=== PATIENT | male | born 1955 | race Caucasian/White ===

== ENCOUNTER 2023-11-07 10:03 | Outpatient (REF) | payer MEDICARE, MEDICAID, SELFPAY ==
[2023-11-07 15:43] LABS: Estimated Average Glucose 166 mg/dL; Hemoglobin A1c % 7.4 % (<6.0)
[2023-11-07 16:21] LABS: Alanine Aminotransferase 27 U/L (0-40); Albumin Level 4.4 g/dL (3.5-5.0); Alkaline Phosphatase 60 U/L (39-117); Anion Gap 15 (12-20); Aspartate Amino Transferase 23 U/L (5-37); Bilirubin Direct 0.2 mg/dL (0.0-0.5); Bilirubin Total 0.5 mg/dL (0.0-1.0); Blood Urea Nitrogen 13 mg/dL (9-16); Calcium 9.9 mg/dL (8.4-10.2); Carbon Dioxide 25 mmol/L (22-29); Chloride 104 mmol/L (96-108); Cholesterol 204 mg/dL (<200); Estimated Glomerular Filt Rate > 60; Glucose Random 177 mg/dL (60-115); HDL Cholesterol 40 mg/dL (>40); LDL Cholesterol Calculated 128 mg/dL (<100); Potassium 4.3 mmol/L (3.3-5.1); Sodium 140 mmol/L (135-145); Total Protein 7.4 g/dL (6.5-8.0); Triglycerides 181 mg/dL (<150)
== END 2023-11-07 10:04 | disposition home or self-care (01) ==
LOC: HO.CHCLDS 10:03
PROVIDERS: Visit Provider Student in an Organized Health Care Education/Training Program
DX: E11.9 Type 2 diabetes mellitus without complications (principal); I25.118 Atherosclerotic heart disease of native coronary artery with other forms of angina pectoris; Z79.4 Long term (current) use of insulin
CPT/HCPCS: 36415; 80048; 80061; 80076; 83036

== ENCOUNTER 2024-12-05 09:53 | Outpatient (REF) | payer MEDICARE, MEDICAID, SELFPAY ==
--- OUTSIDE RECORDS SUMMARY | 2024-12-05 11:08 | XMS_ITS | Encounter Summary ---
Author Organization [employer] Address [address] [place] [address] Care Team Providers Care Drafter Marine Name Role Phone Sharon Martinez MD Primary Care Provider [phone] Reason for Visit * Reason Onset Date Comments Appointment Request 09/17/2024 Encounter Details Date Type Department Care Team ([facility] Contact Info) Description 09/17/2024 Telephone [facility] [address] [place] [address] Sharon Martinez MD [address] [place] [address] Appointment Request Social History Tobacco Use Types Packs/Day Years Used Date Smoking Tobacco: Former Cigarettes Smokeless Tobacco: Never Alcohol Use Standard Drinks/Week Comments Not Currently 0 (1 standard drink = 0.6 oz pur e alcohol) Alcohol Answer Date Recorded Frequency of Alcohol Consumption Not on file 11/06/2023 Average Number of Drinks Not on file 024 Frequency of Binge Drinking Not on file 10/14 Score 0 11/06/2023 Housing Stability Answer Date Recorded What is your housing situation today? I have amrik deal 11/06/[address] you li ve. Do you have problems with any of the following? None of the above 11/06/2023 Food Insecurity Answer Date Recorded Within the past 12 months, y ou worried that your food would run out before you got money to buy more: Never True 11/06/2023 Within the past 12 months,th e food you bought just didn't last and you didn't have enough money to get more: Never True Transportation Answer Date Recorded In the past 12 months, has l ack of transportation kept you from medical appts, meetings, work or from getting things needed for daily living? No 11/06/2023 Utilities Answer Date Recorded In the past 12 months, has t he electric, gas, oil or water company threatened to shut off services in your home? No 11/06/2023 Internet Access Answer Date Recorded Internet Access Q1 No 11/06/2023 Internet Access Q2 I do not want or need it 10/14 Sex and Gender Information Value Date Recorded Sex Assigned at Male 12/12/2021 10:23 AM EDT Legal Sex Male 10:23 AM EDT Gender Identity Male 11/06/2023 10:05 AM EDT Sexual Orientation Straight 11/06/2023 10 :05 AM EDT documented as of this encounter Miscellaneous Notes * Telephone Encounter - Jimmy Medrano - 09/17/2024 2:18 PM EDT Tc from [facility] (on HIPAA ) requesting to have apt that was canceled due to provider being off on 09/24 rescheduled . Contact [facility] at [phone] ([email or web address]) documented in this encounter Plan of Treatment Upcoming Encounters Date Type Department Care Team (Late st Contact Info) Description 12/25/2024 2:00 PM EST Medication Management [facility] MED & PEDS [address] [place] [address] Rossi Jorgensen, PharmD [address] [place] [address] documented as of this encounter Visit Diagnoses Not on filedocumented in this encounter Care Teams Drafter Marine Relationship Specialty Start Date End Date Sharon Martinez MD [address] [place] [address] PCP - General Family Medicine 11/06/23 documented as of this encounter
--- OUTSIDE RECORDS SUMMARY | 2024-12-05 11:08 | XMS_ITS | Encounter Summary ---
Author Organization [employer] Address [address] [place] [address] Care Team Providers Care Engineering Operator Name Role Phone Sharon Martinez MD Primary Care Provider [phone] Encounter Details Date Type Department Care Team ([facility] st Contact Info) Description 10/09/2024 Orders Only [facility] [address] [place], [place] [phone] Sharon Martinez MD [address] [place] [address] Social History Tobacco Use Types Packs/Day Years [...] Not on file 10/14 Score 0 11/06/2023 Depression Answer Date Recorded Patient Health Questionnaire-9 Score 13 10/03/2024 Patient Health Questionnaire-9 Score 13 10/03/2024 Last PHQ-9: Questionnaire Data Not on file 0 10/03/2024 Housing Stability Answer Date Recorded What is your housing situation today? I have amrik sing 11/06/[address] you li [...] off services in your home? No 11/06/2023 Depression Answer Date Recorded Patient Health Questionnaire-2 Score 4 10/03/2024 Internet Access Answer Date Recorded Internet Access Q1 No 11/06/2023 Internet Access Q2 I do not want or need it 10/14 Sex and Gender Information Value Date Recorded Sex Assigned at Male 12/12/2021 10:23 AM EDT Legal Sex Male 10:23 AM EDT Gender Identity Male 11/06/2023 10:05 AM EDT Sexual Orientation Straight 11/06/2023 10 :05 AM EDT documented as of this encounter Plan of Treatment Upcoming Encounters Date Type Department Care Team (Late st Contact Info) Description 12/25/2024 2:00 PM EST Medication Management [facility] MED & PEDS [address] [place] [address] Rossi Jorgensen PharmD [address] [place] [address] documented as of this encounter Visit Diagnoses Not on filedocumented in this encounter Additional Health Concerns Assessment Noted Time PHQ-9 Depression Total Score: 13 025 3:26 PM EDT documented as of this encounter Care Teams Engineering Operator Relationship Specialty Start Date End Date Sharon Martinez MD [address] [place] [address] PCP - General Family Medicine 11/06/23 documented as of this encounter
--- OUTSIDE RECORDS SUMMARY | 2024-12-05 11:08 | XMS_ITS | Encounter Summary ---
Author Organization [employer] Address [address] [place] [address] Care Team Providers Care Surgical Product Sales Consultant Name Role Phone Sharon Martinez MD Primary Care Provider [phone] Reason for Visit * Reason Onset Date Comments Med Refill 10/24/2024 Encounter Details Date Type Department Care Team ([facility] st Contact Info) Description 10/24/2024 Telephone [facility] MEDICINE [address] [place] [address] Sharon Martinez MD [address] [place], [place] [phone] Med Refill Social History Tobacco Use Types Packs/Day Years [...] encounter Miscellaneous Notes * Telephone Encounter - Sharon Martinez MD - 10/26/2024 9:18 PM EDT sent * Telephone Encounter - Carolee Thompson LPN - 10/24/2024 4:03 PM EDT Please review request as Combivent has been recently sent to pharmacy * Telephone Encounter - Irvin Yu - 10/24/2024 4:00 PM EDT TC from pt requesting medication refill. Medications needing refill: albuterol (ProAir HFA) 108 (90 Base) MCG/ACT inhaler To be sent to: [id number] - [place] - [address] [facility] [address] documented in this encounter Plan of Treatment Upcoming Encounters Date Type Department Care Team (Late st Contact Info) Description 12/25/2024 2:00 PM EST Medication Management [facility] MED & PEDS [address] [place] [address] Rossi Jorgensen PharmD [address] [place] [address] documented as of this encounter Visit Diagnoses Not on filedocumented in this encounter Additional Health Concerns Assessment Noted Time PHQ-9 Depression Total Score: 13 025 3:26 PM EDT documented as of this encounter Care Teams Surgical Product Sales Consultant Relationship Specialty Start Date End Date Sharon Martinez MD [address] [place] [address] PCP - General Family Medicine 11/06/23 documented as of this encounter
--- OUTSIDE RECORDS SUMMARY | 2024-12-05 11:08 | XMS_ITS | Encounter Summary ---
Author Organization [employer] Address [address] [place] [address] Care Team Providers Care Reinforcing Bar Setter Name Role Phone Sharon Martinez MD Primary Care Provider [phone] Reason for Visit * Reason Onset Date Comments Prior Auth Prescription 05/22/2024 Medication Question 05/22/2024 Encounter Details Date Type Department Care Team ([facility] st Contact Info) Description 05/22/2024 Telephone [facility] MEDICINE [address] [place] [address] Sharon Martinez MD [address] [place] [address] Prior Auth Prescription; Medication Question Social History Tobacco Use Types Packs/Day Years [...] encounter Miscellaneous Notes * Telephone Encounter - Nimesh Mack - 05/22/2024 12:18 PM EDT Tc from [facility] reports that they received two scripts for insulin glargine (Lantus) 100 UNIT/ML injection with two separate directions . They need directions clarified and whether this would be inpen form or vile . Also reporting Insurance not covering medication . [place] required . documented in this encounter Plan of Treatment Upcoming Encounters Date Type Department Care Team (Late st Contact Info) Description 12/25/2024 2:00 PM EST Medication Management [facility] MED & PEDS [address] [place] [address] Rossi Jorgensen PharmD [address] [place] [address] documented as of this encounter Visit Diagnoses Not on filedocumented in this encounter Care Teams Reinforcing Bar Setter Relationship Specialty Start Date End Date Sharon Martinez MD [address] [place] [address] PCP - General Family Medicine 11/06/23 documented as of this encounter
--- OUTSIDE RECORDS SUMMARY | 2024-12-05 11:08 | XMS_ITS | Clinical Summary ---
Author Organization [employer] Address [address] [facility] 7[address] [place] [address] Care Team Providers Care Associate Financial Advisor Name Role Phone Sharon Martinez MD Primary Care Provider [phone] Allergies No known active allergies Medications * This document contains information received from the source organization and may not represent a complete record from that organization. albuterol (ProAir HFA) 108 (90 Base) MCG/ACT inhaler Inhale. 05/28/19 14 Active acetaminophen (Tylenol) 325 MG tablet Take 650 mg by mouth. 01/05/20 20 Active aspirin 81 MG EC tablet Take 81 mg by mouth Once per day. 10/22/19 14 Active Eliquis 5 MG tablet Take 5 mg by mouth 2 times daily. Active gabapentin (Neurontin) 100 MG capsule Take 200 mg by mouth Once per day. 01/05/20 20 Active famotidine (Pepcid) 20 MG tablet 05/31/19 22 Active lovastatin (Mevacor) 20 MG tablet TAKE 1 TABLET BY MOUTH EVERY NIGHT WITH THE EVENING MEAL 10/16/19 24 Active oxybutynin XL (Ditropan-XL) 15 MG 24 hr tablet Take 15 mg by mouth Once per day. 02/17/19 22 Active PARoxetine (Paxil) 20 MG tablet Take 20 mg by mouth Once per day. Active memantine (Namenda) 10 MG tablet Take 1 tablet by mouth Once per day. 03/01/19 25 Active Blood Glucose Monitoring Suppl (FreeStyle Lite) w/Device kit 1 kit by Other route 3 times daily. 1 kit 07/03/19 25 026 Active FREESTYLE LITE test stripIndication s:Type 2 diabetes mellitus without complication, with long-term current use of insulin (HCC) 1 each by Other route 2 times daily. 180 each 3 10/04/19 25 026 Active insulin aspart FlexPen (NovoLOG) 100 UNIT/ML penIndications: Type 2 diabetes mellitus without complication, with long-term current use of insulin ([facility]) Inject 8 Units under the skin 3 times daily. 15 mL 1 10/04/19 25 Active lisinopril 20 MG tabletIndicatio ns:Primary hypertension Take 1 tablet (20 mg) by mouth Once per day. 90 tablet 10/04/19 25 Active metoprolol succinate XL (Toprol-XL) 25 MG 24 hr tabletIndicatio ns:Primary hypertension Take 0.5 tablets (12.5 mg) by mouth Once per day. 90 tablet 10/04/19 25 Active amLODIPine (Norvasc) 5 MG tabletIndicatio ns:Primary hypertension Take 1 tablet (5 mg) by mouth Once per day. 90 tablet 10/04/19 25 Active Blood Glucose Monitoring Suppl (Livrada Lite) w/Device kitIndications: Type 2 diabetes mellitus without complication, with long-term current use of insulin ([facility]) Use to test blood sugar 2 times daily 1 kit 10/07/19 25 Active insulin pen needle (BD Pen Needle Gilma 2nd Gen) 32G x 4 mm miscIndications :Type 2 diabetes mellitus without complication, with long-term current use of insulin ([facility]) Use as instructed to inject insulin 4x/day 100 each 3 10/07/19 25 Active ipratropium-alb uterol (Combivent Respimat) 20-100 MCG/ACT inhalerIndicati ons:Chronic obstructive pulmonary disease, unspecified COPD type ([facility]/HCC) ([facility]) Inhale 1 puff in the morning, at noon, in the evening, and at bedtime. 4 g 11 10/27/19 25 026 Active insulin glargine (Lantus SoloStar) 100 UNIT/ML penIndications: Type 2 diabetes mellitus without complication, with long-term current use of insulin ([facility]) Inject 15 Units under the skin at bedtime. 3 mL 1 11/26/19 25 026 Active insulin glargine (Lantus SoloStar) 100 UNIT/ML penIndications: Type 2 diabetes mellitus without complication, with long-term current use of insulin ([facility]) Inject 10 Units under the skin at bedtime. 3 mL 1 10/04/19 25 025 Discontinued(R eorder (will not trigger notification to Pharmacy)) Active Problems Problem Noted Date Diagnosed Date Moderate dementia with mood disturbance ([facility] ) 12/24/2023 Assessment & Plan (10/04/2024 4:41 PM EDT): - Vascular dementia - following with [facility] Neurology: Dr. Cochran - Encouraged to contact Neuro to schedule follow up appt - During visit, pt also expressed feeling down/depressed at times due to his diagnosis. No acute safety concerns or thoughts of self harm. Referral for [facility] BE placed. Mild intermittent asthma without complication Type 2 diabetes mellitus wit hout complication, with long-term current use of insulin 11/06/2023 Assessment & Plan (10/04/2024 4:37 PM EDT): - Per chart review, question of Type 1 vs Type 2 diabetes. - If Type 2 diabetes --> given age and comorbidities, may benefit from consideration of oral anti-diabetic agents and reduction of insulin. - If Type 1 diabetes --> may benefit from CGM for improved monitoring and notification of episodes of hypo and hyperglycemia - Referral to [facility] CDTM team placed to assist with med management and titration Med management: - Start Lantus 10 units nightly - Decrease to Novolog 8 units AC - BG monitoring supplies sent to pharmacy, reviewed home BG monitoring recommendations - Encouraged lifestyle interventions - Encouraged to discuss further med adjustments with PCP and [facility] Clinical pharmacist Atherosclerosis of coronary artery of [place] heart with stable angina pectoris 05/31/2021 Overview (11/06/2023): Last Assessment & Plan: Pharmacologic stress test 05/12/2021 showed abnormal study with a small in size and mild intensity partially reversible defect at the inferior apex suggesting mixed scar and ischemia of the inferior apex. We will optimize his cardiovascular risk factors. Patient has stable angina and reports rarely having to take nitro for chest pain. We will continue to monitor and follow-up as needed. Dyslipidemia, goal LDL below 70 05/31/2021 Overview (11/06/2023): As of August 2020 his [facility] labs showed an LDL of 164. Patient has been switched from lovastatin to rosuvastatin for better lipid control given the results of his pharmacologic stress test. Hypertension 05/31/2021 Overview (11/06/2023): Last Assessment & Plan: Fairly well-controlled on current antihypertensive medication therapy. Continue without changes. - advised low salt diet - advised activities as tolerable Assessment & Plan (10/04/2024 4:33 PM EDT): - Med refills sent to pharmacy. Cont w. Current regimen, f/up precautions reviewed Encounters * This document contains information received from the source organization and may not represent a complete record from that organization. Date Type Department Care Team Description 11/25/2024 11:00 AM EDT Office Visit [facility] [address] [place] [address] Sharon Martinez MD Type 2 diabetes mellitus without complication, with long-term current use of insulin (HCC) (Primary Dx); Moderate dementia with mood disturbance, unspecified dementia type (CMS/HCC) (HCC); Primary hypertension; Encounter for immunization; Encounter for screening for malignant neoplasm of colon 11/25/2024 Travel 11/24/2024 Telephone [facility] [address] [place] [phone] Sharon Martinez MD Cologuard Outreach Unreturned Kit Reminder 11/19/2024 Patient Outreach [facility] [address] [place] [phone] Sharon Martinez MD Care Coordination (CHW outreach for SDOH PT-1 and food needs-referral completed /) 11/19/2024 Patient Outreach [address] [address] Sharon Martinez MD Pre-visit Planning (SDOH screening positive and Tobacco screening negative) 10/26/2024 Orders Only [facility] [address] [place] [address] Sharon Martinez MD Chronic obstructive pulmonary disease, unspecified COPD type (CMS/HCC) 10/24/2024 Telephone [facility] [address] [place] [phone] Sharon Martinez MD Med Refill 10/09/[address] [address] Arnol Cates brenda 10/09/2024 Orders Only [facility] [address] [place] [address] Sharon Martinez MD 10/06/2024 Telephone [facility] [address] [place], [place] [phone] Sharon Martinez MD med order 10/06/2024 Telephone [facility] [address] [place] [address] Sharon Martinez MD Freestyle Lite Kit 10/03/2024 3:15 PM EDT Office Visit [facility] [address] [place] [address] Leigha Anglin FNP Type 2 diabetes mellitus without complication, with long-term current use of insulin (CMS/HCC) (Primary Dx); Moderate dementia with mood disturbance, unspecified dementia type (CMS/HCC); Primary hypertension; Chronic obstructive pulmonary disease, unspecified COPD type (CMS/HCC) 10/03/2024 Travel 10/02/2024 Telephone [facility] [address] [place] [address] Sharon Martinez MD Chart Prep 09/25/[address] [address] Sharon Martinez MD 09/17/2024 Telephone [facility] [address] [place] [address] Sharon Martinez MD Appointment Request 09/11/2024 Telephone [facility] [address] [place] [address] Sharon Martinez MD TC canceled appt from Last 3 Months Immunizations Immunization Administration Dates Next Due Influenza High-dose Quadriva lent Preservative Free 01/31/2022 Influenza Injectable Quadriv alant Preservative Free IIV4 MDCK 11/22/2017 Influenza Quadrivalent Adjuvanted 11/26/2020,10/2019 Influenza injectable quadriv alent preservative free 10/20/2015 Influenza, High Dose Seasona l, Preservative Free 11/25/2024,11/06/2023,12/19/2018 Pneumococcal Conjugate PCV 20 12/24/2023 Tdap 11/06/2023 Social History Tobacco Use Types Packs/Day Years Used Date Smoking Tobacco: Former Cigarettes Smokeless Tobacco: Never Tobacco Cessation:Counseling Given: Not Answered Alcohol Use Standard Drinks/Week Comments Not Currently [...] housing situation today? I have amrik deal 11/19/[address] you li ve. Do you have problems with any of the following? None of the above 11/19/2024 Food Insecurity Answer Date Recorded Within the past 12 months, y ou worried that your food would run out before you got money to buy more: Never True 11/19/2024 Within the past 12 months,th e food you bought just didn't last and you didn't have enough money to get more: Never True 09/2024 Transportation Answer Date Recorded In the past 12 months, has l ack of transportation kept you from medical appts, meetings, work or from getting things needed for daily living? No 11/25/2024 Utilities Answer Date Recorded In the past 12 months, has t he electric, gas, oil or water company threatened to shut off services in your home? No 11/19/2024 Depression Answer Date Recorded Patient Health Questionnaire-2 Score 4 10/03/2024 Internet Access Answer Date Recorded Internet Access Q1 No 11/25/2024 Internet Access Q2 I do not want or need it 11/12 Sex and Gender Information Value Date Recorded Sex Assigned at Male 12/12/2021 10:23 AM EDT Legal Sex Male 10:23 AM EDT Gender Identity Male 11/06/2023 10:05 AM EDT Sexual Orientation Straight 11/06/2023 10 :05 AM EDT Last Filed Vital Signs Vital Sign Reading Time Taken Comments Blood Pressure 148/66 11/25/2024 11:04 AM EDT Pulse 72 11/25/2024 11:04 AM EDT Temperature 36.3 C (97.3 F) 11/25/2024 11:04 AM EDT Respiratory Rate 18 11/25/2024 11:04 AM EDT Oxygen Saturation 97% 05/01/2024 4:09 PM EDT Inhaled Oxygen Concentration - - Weight 85.3 kg (188 lb) 11/25/2024 11:04 AM EDT Height 170.2 cm (5' 7 ) 11/25/2024 11:04 AM EDT Body Mass Index 29.44 11/25/2024 11:04 AM EDT Plan of Treatment Upcoming Encounters Date Type Department Care Team (Late st Contact Info) Description 12/25/2024 2:00 PM EST Medication Management [facility] [address] [place] [address] Rossi Jorgensen, PharmD [address] [place] [address] Health Maintenance Due Date Last Done Comments CT Colonography 1953 Colonoscopy 1953 Colorectal Cancer Screening 1953 FIT DNA/Cologuard 1953 FIT 1953 FOBT 1953 Sigmoidoscopy 1953 Eye Exam 06/30/1963 Alcohol/Substance Use Screening 1965 Hepatitis C Screening 06/30/1971 Diabetes: Urine Protein Screening 1972 Zoster Vaccines (1 of 2) 06/30/2003 RSV Patients and Patients Aged 60 years or older (1 - Risk 60-74 years 1-dose series) 2013 COVID-19 Vaccine ( season) 2024 12/24/2020, 05/20/2020, 04/29/2020, Additional history exists Lipid Panel 11/06/2024 11/07/2023 Diabetes: Hemoglobin A1C 01/03/2025 025, 03/26/2024, 11/07/2023, Additional history exists Diabetes: Foot Exam 03/26/2025 03/26/2024, 03/26/2024, 03/26/2024, Additional history exists Depression Monitoring 04/05/2025 10/03/2024, 025 SDOH Screening 11/25/2025 11/25/2024 Tobacco Screening 11/25/2025 11/25/2024 DTaP/Tdap/Td Vaccines (2 - Td or Tdap) 11/05/2033 11/06/2023 Pneumococcal Vaccine: 50+ Years Completed 12/24/2023 Influenza Vaccine Completed 11/25/2024, , 01/31/2022, Additional history exists HIB Vaccines Aged Out No longer eligi ble based on patient's age to complete this topic HPV Vaccines Aged Out No longer eligi ble based on patient's age to complete this topic Hepatitis A Vaccines Aged Out No long er eligible based on patient's age to complete this topic Hepatitis B Vaccines Aged Out No long er eligible based on patient's age to complete this topic IPV Vaccines Aged Out No longer eligi ble based on patient's age to complete this topic Meningococcal B Vaccine Aged Out No l onger eligible based on patient's age to complete this topic Meningococcal Vaccine Aged Out No marysol taay eligible based on patient's age to complete this topic RSV under 20 months Aged Out No longe r eligible based on patient's age to complete this topic Rotavirus Vaccines Aged Out No longer eligible based on patient's age to complete this topic Procedures Procedure Name Priority Date/Time Associated Diagnosis Comments POCT GLUCOSE Routine 11/25/2024 11:07 AM EDT Type 2 diabetes mellitus without complication, with long-term current use of insulin ([facility]) POCT GLYCATED HEMOGLOBIN, TOTAL Routine 10/03/2024 3:34 PM EDT Type 2 diabetes mellitus without complication, with long-term current use of insulin ([facility]) POCT GLUCOSE Routine 10/03/2024 3:31 PM EDT Type 2 diabetes mellitus without complication, with long-term current use of insulin ([facility]) LIPID PANEL, STANDARD Routine 11/07/2023 10:13 AM EDT Atherosclerosis of coronary artery of [place] heart with stable angina pectoris, unspecified vessel or lesion type ([facility]) Type 2 diabetes mellitus without complication, with long-term current use of insulin ([facility]) from Last 3 Months or Most Recently Relevant to Health Maintenance Results * POCT Glucose (11/25/2024 11:07 AM EDT) Only the most recent of2 resultswithin the time period is included. Glucose Blood, POC 197 60 - 200 mg/dL QC Media Lot # [id number] Lot# Expiration Date Blood Capillary blood specimen / Unknown 11/25/2024 11:07 AM EDT Sharon Martinez MD POINT OF CARE TEST ENTER/EDIT OR DERABLES Final Result * (ABNORMAL) POCT HGB A1C (10/03/2024 3:34 PM EDT) Hemoglobin A1C 8.7(A) 4.0 - 5.7 % QC Media Lot # [id number] Lot# Expiration Date Blood 10/03/2024 3:34 PM EDT Leigha TEJEDA POINT OF CARE TEST ENTER/EDIT ORDERABLES Final Result * (ABNORMAL) Lipid Panel, Standard (11/07/2023 10:13 AM EDT) Triglycerides 181(H) <150 mg/dL [facility] Comment:Desirable Triglyceri de: less than 150 mg/dLBorderline High Triglyceride 150-199 mg/dLHigh Triglyceride: 200-499 mg/dLVery High Triglyceride: greater than or equal to 5OO mg/dL Cholesterol 204(H) <200 mg/dL [facility] Comment:Desirable Cholestero l: less than 200 mg/dLBorderline High Cholesterol: 200-239 mg/dLHigh Cholesterol: greater than 239 mg/dL LDL Cholesterol Calculated 128(H) <100 mg/dL [facility] Comment:Desirable LDL: less than 100 mg/dLNear Optimal/Above Optimal LDL: 110- 129 mg/dLBorderline High LDL: 130-159 mg/dLHigh LDL: 160-189 mg/dLVery High LDL: greater than or equal to 190 mg/dL HDL Cholesterol 40(L) >40 mg/dL [facility] Comment:Desirable HDL: great er than 40 mg/dL Note: This HDL assay may give artificially low results in patients with liver disease. Blood Venous blood specimen / Unknown 11/07/2023 10:13 AM EDT 11/07/2023 3:03 PM EDT us Sharon Martinez MD LAB BLOOD ORDERABLES Final Resul t [facility] [address] [place] [address] [phone] from Last 3 Months or Most Recently Relevant to Health Maintenance [place] [address] [place] [address] [place] [phone] Care Teams Associate Financial Advisor Relationship Specialty Start Date End Date Sharon Martinez MD [address] [place] [place] [phone] PCP - General Family Medicine 11/06/23
--- OUTSIDE RECORDS SUMMARY | 2024-12-05 11:08 | XMS_ITS | Clinical Summary ---
Author Organization [facility] Address [address] [address] Phone Care Team Providers Care Polymerization Oven Tender Name Role Phone Milena Treviño Primary Care Provider [phone] Allergies No known active allergies Medications ELIQUIS 5 mg tablet Take 5 mg by mouth 2 (two) times a day. 02/01/2021 Active amLODIPine (NORVASC) 5 MG tablet Take 5 mg by mouth 2 (two) times a day. 04/26/2021 Active gabapentin (NEURONTIN) 100 MG capsule Take 200 mg by mouth daily. 01/05/2020 Active aspirin 81 MG EC tablet Take 81 mg by mouth daily. 01/28/2021 Active oxybutynin (DITROPAN XL) 15 MG 24 hr tablet Take 15 mg by mouth daily. 02/17/2021 Active PARoxetine (PAXIL) 20 MG tablet Take 20 mg by mouth daily. 04/18/2021 Active pregabalin (LYRICA) 225 MG capsule Take 225 mg by mouth daily. 04/18/2021 Active insulin aspart U-100 (NOVOLOG FLEXPEN U-100 INSULIN) 100 unit/mL (3 mL) injection pen Inject 10 Units under the skin 3 (three) times a day. Active insulin detemir U-100 (LEVEMIR FLEXTOUCH U-100 INSULN) 100 unit/mL (3 mL) InPn injection pen Inject 20 Units under the skin daily. Active lisinopril (PRINIVIL,ZESTRI L) 20 MG tablet 05/30/2021 Act karlee famotidine (PEPCID) 20 MG tablet 05/30/2021 Active rosuvastatin (CRESTOR) 20 MG tablet Take 1 tablet (20 mg total) by mouth daily. 30 tablet 3 05/31/2021 Active Active Problems Problem Noted Date Diagnosed Date Hypertension 05/31/2021 Assessment & Plan (05/31/2021 3:42 PM EDT): Fairly well-controlled on current antihypertensive medication therapy. Continue without changes. - advised low salt diet - advised activities as tolerable Atherosclerosis of coronary artery of [place] heart with stable angina pectoris 05/31/2021 Assessment & Plan (05/31/2021 3:43 PM EDT): Pharmacologic stress test 05/12/2021 showed abnormal study [...] Dyslipidemia, goal LDL below 70 05/31/2021 Overview (05/31/2021): As of August 2020 his [facility] labs showed an LDL of 164. Patient has been switched from lovastatin to rosuvastatin for better lipid control given the results of his pharmacologic stress test. Social History Tobacco Use Types Packs/Day Years Used Date Smoking Tobacco: Never Smokeless Tobacco: Never Comments:quit at 63, used to smoke since he was 16 Education Answer Date Recorded Are you interested in more education? Not on pj e 06/10/2022 Are you concerned about learning? Not on file 06/10/2022 No 06/10/2022 No 06/10/2022 Digital Access Answer Date Recorded No 07/09/2022 No 07/09/2022 No 07/09/2022 Reliable internet access at home? Not on file 07/09/2022 Device with a working camera? Not on file Sex and Gender Information Value Date Recorded Sex Assigned at Not on file Legal Sex Male 11:33 AM EST Gender Identity Not on file Sexual Orientation Not on file Last Filed Vital Signs Vital Sign Reading Time Taken Comments Blood Pressure 130/70 05/31/2021 2:32 PM EDT Pulse 80 05/31/2021 2:32 PM EDT Temperature - - Respiratory Rate - - Oxygen Saturation 96% 05/31/2021 2:32 PM EDT Inhaled Oxygen Concentration - - Weight 102.1 kg (225 lb) 05/31/2021 2:32 PM EDT Height 172.7 cm (5' 8 ) 05/31/2021 2:32 PM EDT Body Mass Index 34.21 05/31/2021 2:32 PM EDT Plan of Treatment Health Maintenance Due Date Last Done Comments Adult Td,Tdap Booster 1955 BLOOD PRESSURE 1953 CREATININE LEVEL 1953 POTASSIUM LEVEL 1953 DEPRESSION SCREENING 1965 HEPATITIS C SCREENING 06/30/1971 PNEUMOCOCCAL VACCINES (50+ years) (1 of 2 - PCV) 1972 COLOGUARD 1998 COLONOSCOPY 1998 COLORECTAL CANCER SCREENING 1998 FIT TEST 1998 FOBT 1998 SIGMOIDOSCOPY 1998 VIRTUAL COLONOSCOPY 1998 RSV VACCINE (1 - Risk 50-74 years 1-dose series) 06/30/2003 ZOSTER VACCINES (1 of 2) 06/30/2003 INFLUENZA VACCINE (#1) 2024 COVID-19 VACCINE (3 - 2024-2 6 season) 2024 05/20/2020, 04/29/2020 SMOKING STATUS SCREENING (On ce After 26 Yrs) Completed 05/31/2021 HEPATITIS A VACCINES Aged Out No long er eligible based on patient's age to complete this topic HIB VACCINES Aged Out No longer eligi ble based on patient's age to complete this topic MENINGOCOCCAL VACCINES (ACWY) Aged Out No longer eligible based on patient's age to complete this topic MENINGOCOCCAL VACCINES (B) Aged Out N o longer eligible based on patient's age to complete this topic Medical Devices Not on file Insurance MEDICARE PART A & [place] [facility] [place] [facility] [place] [facility] [place] & B [facility] Care Teams Polymerization Oven Tender Relationship Specialty Start Date End Date Milena Treviño PA [address] [place] [address] [phone] PCP - General 01/20/21 Additional Source Comments The information contained in this document represents components of the legal health record. It is not the complete legal health record.[facility]
--- OUTSIDE RECORDS SUMMARY | 2024-12-05 11:08 | XMS_ITS | Encounter Summary ---
Author Organization [employer] Address [address] [place] [address] Care Team Providers Care Hotel Or Motel Room Service Supervisor Name Role Phone Sharon Martinez MD Primary Care Provider [phone] Reason for Visit * Reason Onset Date Comments Medication Question 05/14/2024 Encounter Details Date Type Department Care Team ([facility] st Contact Info) Description 05/14/2024 Telephone [facility] [address] [place] [address] Sharon Martinez MD [address] [place], [place] [id number] Medication Question Social History Tobacco Use Types [...] encounter Miscellaneous Notes * Telephone Encounter - Jada Barrow LPN - 05/19/2024 10:28 AM EDT Please D/c medication below [facility] from [facility] requesting alternative medication due won't be able to order insulin detemir (Levemir FlexPen) 100 UNIT/ML pen. * Telephone Encounter - Kaylen Groves - 05/14/2024 11:44 AM EDT Tc from [facility] requesting alternative medication due won't be able to order insulin detemir (Levemir FlexPen) 100 UNIT/ML pen. documented in this encounter Plan of Treatment Upcoming Encounters Date Type Department Care Team (Late st Contact Info) Description 12/25/2024 2:00 PM EST Medication Management [facility] [address] [place] [address] Rossi Jorgensen PharmD [address] [place] [address] documented as of this encounter Visit Diagnoses Not on filedocumented in this encounter Care Teams Hotel [employer] Motel Room Service Supervisor Relationship Specialty Start Date End Date Sharon Martinez MD [address] [place] [address] PCP - General Family Medicine 11/06/23 documented as of this encounter
--- OUTSIDE RECORDS SUMMARY | 2024-12-05 11:08 | XMS_ITS | Encounter Summary ---
Author Organization [employer] Address [address] 7[address] [place] [address] Care Team Providers Care Coach Mechanic Name Role Phone Sharon Martinez MD Primary Care Provider [phone] Encounter Details Date Type Department Care Team ([facility] st Contact Info) Description 05/28/2024 Orders Only [facility]C MED & PEDS [address] [place] [address] Sharon Martinez MD [address] [place] [address] Social History Tobacco Use Types Packs/Day Years [...] Description 12/25/2024 2:00 PM EST Medication Management [facility] MED & PEDS [address] [place] [address] Rossi Jorgensen, PharmD [address] [place] [address] documented as of this encounter Visit Diagnoses Not on filedocumented in this encounter Care Teams Coach Mechanic Relationship Specialty Start Date End Date Sharon Martinez MD [address] [place], [place] [id number] PCP - General Family Medicine 11/06/23 documented as of this encounter
--- OUTSIDE RECORDS SUMMARY | 2024-12-05 11:08 | XMS_ITS | Clinical Summary ---
Author Organization [employer] [facility] Address [address] [place] [address] Care Team Providers Care Top Case Assembler Name Role Phone Unavailable Primary Care Provider Unavailabl e Social History Tobacco Use Types Packs/Day Years Used Date Smoking Tobacco: Never Assessed Sex and Gender Information Value Date Recorded Sex Assigned at Not on file Legal Sex Male 4:18 PM EST Gender Identity Not on file Sexual Orientation Not on file Plan of Treatment Health Maintenance Due Date Last Done Comments DTaP,Tdap,and Td Vaccines (1 - Tdap) 1972 Pneumococcal Vaccine: 50+ Ye ars (1 of 1 - PCV) 06/30/2003 Zoster Vaccines (1 of 2) 06/30/2003 Abdominal Aortic Aneurysm (A AA) Screen 01/15/2022 Cholesterol Screening (Lipid Panel) 01/15/2022 Falls Risk Assessment 01/15/2022 Hepatitis C Screening 01/15/2022 Social Influencers of Health Screening 01/15/2022 Depression Screening 02/13/2024 COVID-19 Vaccine (1 - 2023-2 5 season) 2024 Influenza Vaccine (#1) 2024 RSV Immunization Adult Patie nts (1 - 1-dose 75+ series) 2028 Colorectal Cancer Screening: Colonoscopy 09/02/2034 09/02/2024 HIB Vaccines Aged Out No longer eligi [...] on patient's age to complete this topic MMR Vaccines Aged Out No longer eligi ble based on patient's age to complete this topic Meningococcal ACWY Vaccine Aged Out N o longer eligible based on patient's age to complete this topic Meningococcal B Vaccine Aged Out No l onger eligible based on patient's age to complete this topic RSV Immunization Patients Un hai 20 months Aged Out No longer eligible b ased on patient's age to complete this topic Varicella Vaccines Aged Out No longer eligible based on patient's age to complete this topic Procedures Procedure Name Priority Date/Time Associated Diagnosis Comments EXTERNAL COLONOSCOPY REPORT Routine 09/02/2024 9:45 AM EDT from Last 3 Months or Most Recently Relevant to Health Maintenance Results * External Colonoscopy Report (09/02/2024 9:45 AM EDT) Anatomical Region Laterality Modality Endoscopy us Historical Provider GI~PROCEDURE ORDERABLES F inal Result from Last 3 Months or Most Recently Relevant to Health Maintenance
--- OUTSIDE RECORDS SUMMARY | 2024-12-05 11:09 | XMS_ITS | Encounter Summary ---
Author Organization [employer] Address [address] 7t [place] [address] Care Team Providers Care Netting Weaver Name Role Phone Sharon Martinez MD Primary Care Provider [phone] Reason for Visit * Reason Onset Date Comments Freestyle Lite Kit 10/06/2024 Encounter Details Date Type Department Care Team ([facility] Contact Info) Description 10/06/2024 Telephone C [facility] MED & PEDS [address] [place] [address] Sharon Martinez MD 505 [place] [address] Freestyle Lite Kit Social History Tobacco Use Types Packs/Day Years [...] encounter Miscellaneous Notes * Telephone Encounter - Harleen Zeng - 10/06/2024 9:59 AM EDT Tc from [place] at [facility] requesting Freestyle Lite Kit. [place] stated Lolita kit is unavailable. documented in this encounter Plan of Treatment Upcoming Encounters Date Type Department Care Team (Late st Contact Info) Description 12/25/2024 2:00 PM EST Medication Management [facility] MED & PEDS [address] [place] [address] Rossi Jorgensen, PharmD [address] [place] [address] documented as of this encounter Visit Diagnoses Diagnosis Type 2 diabetes mellitus without complication, with long-term current use of insulin (HCC) documented in this encounter Additional Health Concerns Assessment Noted Time PHQ-9 Depression Total Score: 13 025 3:26 PM EDT documented as of this encounter Care Teams Netting Weaver Relationship Specialty Start Date End Date Sharon Martinez MD [address] [place] [id number] PCP - General Family Medicine 11/06/23 documented as of this encounter
[2024-12-05 15:11] LABS: Alanine Aminotransferase 25 U/L (0-40); Albumin Level 4.4 g/dL (3.5-5.0); Alkaline Phosphatase 66 U/L (39-117); Anion Gap 12 (12-20); Aspartate Amino Transferase 31 U/L (5-37); Blood Urea Nitrogen 12 mg/dL (9-16); Calcium 9.5 mg/dL (8.4-10.2); Carbon Dioxide 26 mmol/L (22-29); Chloride 107 mmol/L (96-108); Cholesterol 204 mg/dL (<200); Estimated Glomerular Filt Rate > 60; HDL Cholesterol 33 mg/dL (>40); Potassium 3.6 mmol/L (3.3-5.1); Sodium 141 mmol/L (135-145); Total Protein 7.2 g/dL (6.5-8.0); Triglycerides 171 mg/dL (<150)
== END 2024-12-05 09:54 | disposition home or self-care (01) ==
LOC: HO.CHCLDS 09:53
PROVIDERS: Visit Provider Student in an Organized Health Care Education/Training Program
DX: E11.9 Type 2 diabetes mellitus without complications (principal); Z79.4 Long term (current) use of insulin
CPT/HCPCS: 36415; 80048; 80061; 80076

== ENCOUNTER 2024-12-09 15:27 | Outpatient (AMB) | payer MEDICARE, MEDICAID, SELFPAY ==
--- NOTE | 2024-12-09 15:36 | A.OFFVIS_ITS ---
Intake Visit Reasons: 1 year follow HPI Comments Details: 69 years old right-handed man with vascular dementia. He was complaining of difficulty walking and problem with memory. He said that he was forgetting everything. He was also having difficulty sleeping. No seizure-like activity. [facility] Medical History (Updated 12/09/24 @ 15:48 by Raul Cochran MD) Vascular dementia HTN (hypertension) Review of Systems Narrative Difficulty walking and forgetting. Physical Exam Neuro Other: Mental Status: Alert and oriented to person, place, and time. Normal attention. Normal spontaneous speech, fluency, and comprehension. Cranial Nerves: CN II: Visual sahu full to confrontation, visual acuity intact. CN III, IV, : Pupils equal, round, reactive to light and accommodation. Extraocular movements are normal. CN V: Facial sensation is normal. CN VII: Facial movements symmetrical. CN VIII: Hearing intact to bedside conversation is normal. CN IX, X: Palate elevates symmetrically. CN XI: Shoulder shrug and head turn symmetrical. CN XII: Tongue midline without atrophy or fasciculations. Motor: Bulk and tone normal in all extremities. No significant muscle weakness in arms and legs. No drift. Coordination: Hejmeh-kr-tjle is ok Gait and Station: Slow and cautious with a cane. Extrapyramidal: Full facial expressions and blinking. No rigidity. Movements are appropriate with no tremor or abnormality. Speech: Normal; no dysarthria or tremor. Assessment & Plan Assessment & Plan (1) Vascular dementia: Comment: CT brain WO at [facility] in Nov 2023: Extensive MVD and mild to mod atrophy. Code(s): F01.50 - Vascular dementia, unspecified severity, without behavioral disturbance, psychotic disturbance, mood disturbance, and anxiety Category: Medical Qualifiers: Dementia severity: moderate Dementia behavioral or psychological symptom: with other behavioral disturbance Qualified Code(s): F01.B18 - Vascular dementia, moderate, with other behavioral disturbance Plan Impression: Vascular dementia with depression and associated insomnia. Recommendations: 1. Memantine 10 mg twice a day 2. Mirtazapine 7.5 mg at bedtime 3. He is already taking Paxil for depression. Medications: New memantine (Namenda) 10 mg PO DAILY 180 tabs 1RF mirtazapine 7.5 mg PO BEDTIME 90 tabs 1RF Coding Level of Care Code Est Pt Level 4 (63875) Diagnoses Moderate vascular dementia with other behavioral disturbance F01.B18 Dementia severity: moderate Dementia behavioral or psychological symptom: with other behavioral disturbance
--- OUTSIDE RECORDS SUMMARY | 2024-12-09 19:51 | XMS_ITS | Encounter Summary ---
Author Organization [employer] Address [address] 7t [place] [address] Care Team Providers Care Executive Asst Name Role Phone Sharon Martinez MD Primary Care Provider [phone] Encounter Details Date Type Department Care Team ([facility] st Contact Info) Description 10/09/2024 Orders Only [facility] CHC MED & PEDS [address] [place], [place] [phone] Sharon Martinez MD 505 [place] [address] Social History Tobacco Use Types Packs/Day Years [...] 12/25/2024 2:00 PM EST Medication Management [facility] MED & PEDS [address] [place] [address] Rossi Jorgensen PharmD [address] [place] [address] documented as of this encounter Visit Diagnoses Not on filedocumented in this encounter Additional Health Concerns Assessment Noted Time PHQ-9 Depression Total Score: 13 025 3:26 PM EDT documented as of this encounter Care Teams Executive Asst Relationship Specialty Start Date End Date Sharon Martinez MD [address] [place] [address] PCP - General Family Medicine 11/06/23 documented as of this encounter
--- OUTSIDE RECORDS SUMMARY | 2024-12-09 19:51 | XMS_ITS | Encounter Summary ---
Author Organization [employer] Address [address] [place] [address] Care Team Providers Care Contractor Broomcorn Threshing Name Role Phone Sharon Martinez MD Primary Care Provider [phone] Encounter Details Date Type Department Care Team ([facility] st Contact Info) Description 05/28/2024 Orders Only [facility] CHC MED & PEDS [address] [place] [address] Sharon Martinez MD [address] [place] [address] Social History Tobacco Use Types Packs/Day Years [...] Description 12/25/2024 2:00 PM EST Medication Management [facility] MED & PEDS [address] [place] [address] Rossi Jorgensen, PharmD [address] [place] [address] documented as of this encounter Visit Diagnoses Not on filedocumented in this encounter Care Teams Contractor Broomcorn Threshing Relationship Specialty Start Date End Date Sharon Martinez MD [address] [place], [place] [phone] PCP - General Family Medicine 11/06/23 documented as of this encounter
--- OUTSIDE RECORDS SUMMARY | 2024-12-09 19:51 | XMS_ITS | Clinical Summary ---
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 05/31/2021 Assessment [...] [facility] [place] [facility] [place] [facility] [place] [facility] [facility] [place] [facility] Care Teams Dispatcher Electric Power Relationship Specialty Start Date End Date Milena Treviño PA [address] [place] [address] [id number] PCP - General 01/20/21 Additional Source Comments The information contained in this document represents components of the legal health record. It is not the complete legal health record.[facility]
--- OUTSIDE RECORDS SUMMARY | 2024-12-09 19:51 | XMS_ITS | Clinical Summary ---
Author Organization [employer] [facility] Address [address] [place] [address] Care Team Providers Care Care Director Name Role Phone Unavailable Primary Care Provider [...]
--- OUTSIDE RECORDS SUMMARY | 2024-12-09 19:51 | XMS_ITS | Encounter Summary ---
Author Organization [employer] Address [address] [facility] [address]t [place] [address] Care Team Providers Care Programming Director Name Role Phone Sharon Martinez MD Primary Care Provider [phone] Reason for Visit * Reason Onset Date Comments Med Refill 10/24/2024 Encounter Details Date Type Department Care Team ([facility] st Contact Info) Description 10/24/2024 Telephone [facility] MEDICINE [address] [place] [address] Sharon Martinez MD [address] [place], [place] [phone] Med Refill Social History Tobacco Use Types [...] Base) MCG/ACT inhaler To be sent to: [id number] - [place] - [address] [facility] [address] documented in this encounter Plan of Treatment Upcoming Encounters Date Type Department Care Team (Late st Contact Info) Description 12/25/2024 2:00 PM EST Medication Management [facility] MED & PEDS [address] [place] [address] Rossi Jorgensen PharmD [address] [place] [address] documented as of this encounter Visit Diagnoses Not on filedocumented in this encounter Additional Health Concerns Assessment Noted Time PHQ-9 Depression Total Score: 13 025 3:26 PM EDT documented as of this encounter Care Teams Programming Director Relationship Specialty Start Date End Date Sharon Martinez MD [address] [place] [address] PCP - General Family Medicine 11/06/23 documented as of this encounter
--- OUTSIDE RECORDS SUMMARY | 2024-12-09 19:51 | XMS_ITS | Encounter Summary ---
Author Organization [employer] Address [address] [place] [address] Care Team Providers Care Fisher Pot Name Role Phone Sharon Martinez MD Primary Care Provider [phone] Reason for Visit * Reason Onset Date Comments Prior Auth Prescription 05/22/2024 Medication Question 05/22/2024 Encounter Details Date Type Department Care Team ([facility] st Contact Info) Description 05/22/2024 Telephone [facility] MEDICINE [address] [place] [address] Sharon Martinez MD [address] [place] [address] Prior Auth Prescription; Medication Question Social History [...] - 05/22/2024 12:18 PM EDT Tc from [facility] reports that they received two scripts for [...] Description 12/25/2024 2:00 PM EST Medication Management [facility] MED & PEDS [address] [place] [address] Rossi Jorgensen PharmD [address] [place] [address] documented as of this encounter Visit Diagnoses Not on filedocumented in this encounter Care Teams Fisher Pot Relationship Specialty Start Date End Date Sharon Martinez MD [address] [place] [address] PCP - General Family Medicine 11/06/23 documented as of this encounter
--- OUTSIDE RECORDS SUMMARY | 2024-12-09 19:51 | XMS_ITS | Encounter Summary ---
Author Organization [employer] Address [address] [facility] 7t [place] [address] Care Team Providers Care Broiler Chef Or Cook Name Role Phone Sharon Martinez MD Primary Care Provider [phone] Reason for Visit * Reason Onset Date Comments Freestyle Lite Kit 10/06/2024 Encounter Details Date Type Department Care Team ([facility] Contact Info) Description 10/06/2024 Telephone C [facility] MED & PEDS [address] [place] [address] Sharon Martinez MD [address] [place] [address] Freestyle Lite Kit Social History Tobacco Use [...] 9:59 AM EDT Tc from [place] at [facility] requesting Freestyle Lite Kit. [place] stated [place]ras kit is unavailable. documented in this encounter Plan of Treatment Upcoming Encounters Date Type Department Care Team (Late st Contact Info) Description 12/25/2024 2:00 PM EST Medication Management [facility] MED & PEDS [address] [place] [address] Rossi Jorgensen, PharmD [address] [place] [address] documented as of this encounter Visit Diagnoses Diagnosis Type 2 diabetes mellitus without complication, with long-term current use of insulin (HCC) documented in this encounter Additional Health Concerns Assessment Noted Time PHQ-9 Depression Total Score: 13 025 3:26 PM EDT documented as of this encounter Care Teams Broiler Chef Or Cook Relationship Specialty Start Date End Date Sharon Martinez MD [address] [place] [address] PCP - General Family Medicine 11/06/23 documented as of this encounter
--- OUTSIDE RECORDS SUMMARY | 2024-12-09 19:51 | XMS_ITS | Encounter Summary ---
Author Organization [employer] Address [address] [place] [address] Care Team Providers Care Network Systems Consultant Name Role Phone Sharon Martinez MD Primary Care Provider [phone] Reason for Visit * Reason Onset Date Comments Medication Question 05/14/2024 Encounter Details Date Type Department Care Team ([facility] st Contact Info) Description 05/14/2024 Telephone [facility] MEDICINE [address] [place] [address] Sharon Martinez MD [address] [place], [place] [phone] Medication Question Social History Tobacco Use Types [...] 2:00 PM EST Medication Management [facility] MED & PEDS [address] [place] [address] Rossi Jorgensen PharmD [address] [place] [address] documented as of this encounter Visit Diagnoses Not on filedocumented in this encounter Care Teams Network Systems Consultant Relationship Specialty Start Date End Date Sharon Martinez MD [address] [place] [address] PCP - General Family Medicine 11/06/23 documented as of this encounter
--- OUTSIDE RECORDS SUMMARY | 2024-12-09 19:51 | XMS_ITS | Encounter Summary ---
Author Organization [employer] Address [address] [facility] 7t [place] [address] Care Team Providers Care Lumber Tailer Name Role Phone Sharon Martinez MD Primary Care Provider [phone] Reason for Visit * Reason Onset Date Comments Appointment Request 09/17/2024 Encounter Details Date Type Department Care Team ([facility] Contact Info) Description 09/17/2024 Telephone C [facility] MED [facility] PEDS [address] [place] [address] Sharon Martinez MD [address] [place] [address] Appointment Request Social History Tobacco Use Types [...] on 09/24 rescheduled . Contact Carla at [phone] ([phone]) documented in this encounter Plan of Treatment Upcoming Encounters Date Type Department Care Team (Late st Contact Info) Description 12/25/2024 2:00 PM EST Medication Management [facility] MED & PEDS [address] [place] [address] Rossi Jorgensen, PharmD [address] [place] [address] documented as of this encounter Visit Diagnoses Not on filedocumented in this encounter Care Teams Lumber Tailer Relationship Specialty Start Date End Date Sharon Martinez MD [address] [place] [address] PCP - General Family Medicine 11/06/23 documented as of this encounter
--- OUTSIDE RECORDS SUMMARY | 2024-12-09 19:51 | XMS_ITS | Clinical Summary ---
Author Organization [employer] Address [address] [place] [address] Care Team Providers Care Nougat Cutter Machine Name Role Phone Sharon Martinez MD Primary Care Provider [phone] Allergies No known active allergies Medications * [...] complication, with long-term current use of insulin ([facility]) Inject 8 Units under the skin [...] 10/04/19 25 Active Blood Glucose Monitoring Suppl (Posterbee Lite) w/Device kitIndications: Type 2 diabetes mellitus without complication, with long-term current use of insulin ([facility]) Use to test blood sugar 2 times daily 1 kit 10/07/19 25 Active insulin pen needle (BD Pen Needle Gilma 2nd Gen) 32G x 4 mm miscIndications :Type 2 diabetes mellitus without complication, with long-term current use of insulin ([facility]) Use as instructed to inject insulin 4x/day 100 each 3 10/07/19 25 Active ipratropium-alb uterol (Combivent Respimat) 20-100 MCG/ACT inhalerIndicati ons:Chronic obstructive pulmonary disease, unspecified COPD type ([facility]/HCC) ([facility]) Inhale 1 puff in the morning, at noon, in the evening, and at bedtime. 4 g 11 10/27/19 25 026 Active insulin glargine (Lantus SoloStar) 100 UNIT/ML penIndications: Type 2 diabetes mellitus without complication, with long-term current use of insulin ([facility]) Inject 15 Units under the skin at bedtime. 3 mL 1 11/26/19 25 026 Active insulin glargine (Lantus SoloStar) 100 UNIT/ML penIndications: Type 2 diabetes mellitus without complication, with long-term current use of insulin ([facility]) Inject 10 Units under the skin at bedtime. 3 mL 1 10/04/19 25 025 Discontinued(R eorder (will not trigger notification to Pharmacy)) Active Problems Problem Noted Date Diagnosed Date Moderate dementia with mood disturbance ([facility] ) 12/24/2023 Assessment & Plan (10/04/2024 4:41 PM EDT): - Vascular dementia - following with [facility] Neurology: Dr. Cochran - Encouraged to contact Neuro to schedule follow up appt - During visit, pt also expressed feeling down/depressed at times due to his diagnosis. No acute safety concerns or thoughts of self harm. Referral for [facility] placed. Mild intermittent asthma without complication [...] of hypo and hyperglycemia - Referral to [facility] CDTM team placed to assist with med management and titration Med management: - Start Lantus 10 units nightly - Decrease to Novolog 8 units AC - BG monitoring supplies sent to pharmacy, reviewed home BG monitoring recommendations - Encouraged lifestyle interventions - Encouraged to discuss further med adjustments with PCP and [facility] Clinical pharmacist Atherosclerosis of coronary artery of [place] heart with stable angina pectoris 05/31/2021 Overview [...] Overview (11/06/2023): As of August 2020 his Ravennastate labs showed an LDL of 164. Patient [...] Description 11/25/2024 11:00 AM EDT Office Visit [facility] [address] [place] [address] Sharon Martinez MD Type 2 diabetes mellitus without complication, with long-term current use of insulin (HCC) (Primary Dx); Moderate dementia with mood disturbance, unspecified dementia type (CMS/HCC) (HCC); Primary hypertension; Encounter for immunization; Encounter for screening for malignant neoplasm of colon 11/25/2024 Travel 11/24/2024 Telephone [facility] [address] [place] [phone] Sharon Martinez MD Cologuard Outreach Unreturned Kit Reminder 11/19/2024 Patient Outreach [facility] [address] [place] [phone] Sharon Martinez MD Care Coordination ([facility] outreach for SDOH PT-1 and food needs-referral completed /) 11/19/2024 Patient Outreach [address] [address] Sharon Martinez MD Pre-visit Planning (SDOH screening positive and Tobacco screening negative) 10/26/2024 Orders Only [facility] [address] [place] [address] Sharon Martinez MD Chronic obstructive pulmonary disease, unspecified COPD type (CMS/HCC) 10/24/2024 Telephone [facility] [address] [place] [phone] hSaron Martinez MD Med Refill 10/09/[address] [address] Arnol Cates brenda 10/09/2024 Orders Only [facility] [address] [place] [address] Shraon Martinez MD 10/06/2024 Telephone [facility] [address] [place], [place] [phone] Sharon Martinez MD med order 10/06/2024 Telephone [facility] [address] [place] [address] Sharon Martinez MD Freestyle Lite Kit 10/03/2024 3:15 PM EDT Office Visit [facility] [address] [place] [address] Leigha Anglin FNP Type 2 diabetes mellitus without complication, with long-term current use of insulin (CMS/HCC) (Primary Dx); Moderate dementia with mood disturbance, unspecified dementia type (CMS/HCC); Primary hypertension; Chronic obstructive pulmonary disease, unspecified COPD type (CMS/HCC) 10/03/2024 Travel 10/02/2024 Telephone [facility] [address] [place] [address] Sharon Martinez MD Chart Prep 09/25/[address] [address] Sharon Martinez MD 09/17/2024 Telephone [facility] [address] [place] [address] Sharon Martinez MD Appointment Request 09/11/2024 Telephone [facility] [address] [place] [address] Sharon Martinez MD TC canceled appt from [...] 2:00 PM EST Medication Management [facility] [address] [place] [address] Rossi Jorgensen, PharmD [address] [place] [address] Health Maintenance Due Date Last Done Comments [...] 2024 12/24/2020, 05/20/2020, 04/29/2020, Additional history exists Diabetes: Hemoglobin A1C 01/03/2025 025, 03/26/2024, 11/07/2023, Additional history exists Diabetes: Foot Exam 03/26/2025 03/26/2024, 03/26/2024, 03/26/2024, Additional history exists Depression Monitoring 04/05/2025 10/03/2024, 025 SDOH Screening 11/25/2025 11/25/2024 Tobacco Screening 11/25/2025 11/25/2024 Lipid Panel 12/05/2025 12/05/2024, 11/07/2023 DTaP/Tdap/Td Vaccines (2 - Td or Tdap) [...] topic Meningococcal Vaccine Aged Out No marysol taya eligible based on patient's age to complete this topic RSV under 20 months Aged Out No longe r eligible based on patient's age to complete this topic Rotavirus Vaccines Aged Out No longer eligible based on patient's age to complete this topic Procedures Procedure Name Priority Date/Time Associated Diagnosis Comments HEPATIC FUNCTION PANEL Routine 12/05/2024 9:54 AM EDT Type 2 diabetes mellitus without complication, with long-term current use of insulin (HCC) LIPID PANEL, STANDARD Routine 12/05/2024 9:54 AM EDT Type 2 diabetes mellitus without complication, with long-term current use of insulin (HCC) BASIC METABOLIC PANEL Routine 12/05/2024 9:54 AM EDT Type 2 diabetes mellitus without complication, with long-term current use of insulin ([facility]) POCT GLUCOSE Routine 11/25/2024 11:07 AM EDT Type 2 diabetes mellitus without complication, with long-term current use of insulin ([facility]) POCT GLYCATED HEMOGLOBIN, TOTAL Routine 10/03/2024 3:34 PM EDT Type 2 diabetes mellitus without complication, with long-term current use of insulin ([facility]) POCT GLUCOSE Routine 10/03/2024 3:31 PM EDT Type 2 diabetes mellitus without complication, with long-term current use of insulin ([facility]) from Last 3 Months Results * Hepatic Function Panel (12/05/2024 9:54 AM EDT) Bilirubin, Total 0.3 0.0 - 1.0 mg/dL [facility] Bilirubin, Direct 0.2 0.0 - 0.5 mg/dL [facility] Aspartate Amino Transferase 31 5 - 37 U/L [facility] Alanine Aminotransferase 25 0 - 40 U/L [facility] Total Protein 7.2 6.5 - 8.0 g/dL [facility] Albumin Level 4.4 3.5 - 5.0 g/dL [facility] Alkaline Phosphatase 66 39 - 117 U/L [facility] Blood Venous blood specimen / Unknown 12/05/2024 9:54 AM EDT 12/05/2024 2:31 PM EDT us Sharon Martinez MD LAB BLOOD ORDERABLES Final Resul t [facility] [address] [place] [phone] * (ABNORMAL) Lipid Panel, Standard (12/05/2024 9:54 AM EDT) Triglycerides 171(H) <150 mg/dL [facility] Comment:Slight Lipemia.Royal able Triglyceride: less than 150 mg/dLBorderline High Triglyceride 150-199 mg/dLHigh Triglyceride: 200-499 mg/dLVery High Triglyceride: greater than or equal to 5OO mg/dL Cholesterol 204(H) <200 mg/dL [facility] Comment:Desirable Cholestero l: less than 200 mg/dLBorderline High Cholesterol: 200-239 mg/dLHigh Cholesterol: greater than 239 mg/dL LDL Cholesterol Calculated 137(H) <100 mg/dL [facility] Comment:Desirable LDL: less than 100 mg/dLNear Optimal/Above Optimal LDL: 110- 129 mg/dLBorderline High LDL: 130-159 mg/dLHigh LDL: 160-189 mg/dLVery High LDL: greater than or equal to 190 mg/dL HDL Cholesterol 33(L) >40 mg/dL [facility] Comment:Desirable HDL: great er than 40 mg/dL Note: This HDL assay may give artificially low results in patients with liver disease. Blood Venous blood specimen / Unknown 12/05/2024 9:54 AM EDT 12/05/2024 2:31 PM EDT us Sharon Martinez MD LAB BLOOD ORDERABLES Final Resul t [facility] [address] [place] [phone] * (ABNORMAL) Basic Metabolic Panel (12/05/2024 9:54 AM EDT) Sodium 141 135 - 145 mmol/L [facility] Potassium 3.6 3.3 - 5.1 mmol/L [facility] Chloride 107 96 - 108 mmol/L [facility] Carbon Dioxide 26 22 - 29 mmol/L [facility] Anion Gap 12 12 - 20 [facility] Urea Nitrogen (BUN) 12 9 - 16 mg/dL [facility] Creatinine, Serum 0.90 0.5 - 1.4 mg/dL [facility] Estimated Glomerular Filt Rate >60 [facility] Comment:Chronic Kidney Disea se: Estimated GFR < 60 mL/min/[id number] Kidney Disease: Estimated GFR < 15 mL/min/1.73m2 Glucose 137(H) 60 - 115 mg/dL [facility] Calcium 9.5 8.4 - 10.2 mg/dL [facility] Blood Venous blood specimen / Unknown 12/05/2024 9:54 AM EDT 12/05/2024 2:31 PM EDT us Sharon Martinez MD LAB BLOOD ORDERABLES Final Resul t [facility] [address] [place] [phone] * POCT Glucose (11/25/2024 11:07 AM EDT) Only the most recent of2 resultswithin the time period is included. Glucose Blood, POC 197 60 - 200 mg/dL [employer] Lot # [id number] Lot# Expiration Date , Blood Capillary blood specimen / Unknown 11/25/2024 11:07 AM EDT us Sharon Martinez MD POINT OF CARE TEST ENTER/EDIT OR DERABLES Final Result * (ABNORMAL) POCT HGB A1C (10/03/2024 3:34 PM EDT) Hemoglobin A1C 8.7(A) 4.0 - 5.7 % [employer] Lot # [id number] Lot# Expiration Date , Blood 10/03/2024 3:34 PM EDT Leigha Anglin IMAGING ACCOUNT MANAGER POINT OF CARE TEST ENTER/EDIT ORDERABLES Final Result from Last 3 Months Insurance [facility] STANDARD MEDICARE Care Teams [employer] Relationship Specialty Start Date End Date Sharon Martinez MD [address] [place] [id number] PCP - General Family Medicine 11/06/23
== END 2024-12-09 15:48 | disposition home or self-care (01) ==
LOC: HO.HSM 15:27
PROVIDERS: Visit Provider Psychiatry & Neurology Neurology
DX: F01.B18 Vascular dementia, moderate, with other behavioral disturbance (principal)
CPT/HCPCS: 99214

== ENCOUNTER → 2024-12-09 15:27 | Outpatient (BNVA) | payer MEDICARE, MEDICAID, SELFPAY | PROVIDERS: Visit Provider Psychiatry & Neurology Neurology | DX: F01.B18 Vascular dementia, moderate, with other behavioral disturbance (principal) | CPT/HCPCS: 99212 ==